=== PATIENT | male | born 1975 | race American Indian/Alaskan Native ===

== ENCOUNTER 2020-10-30 10:34 | Emergency (ER) | payer SELFPAY ==
[2020-10-30 10:44] VITALS: BP 126/86
--- NOTE | 2020-10-30 11:05 | Emergency Department Report ---
ED Lower Extremity HPI - General Chief Complaint: Extremity Injury, Lower Stated Complaint: RT LEG/KNEE PAIN Time Seen by Provider: 10/30/20 10:47 Source: patient Mode of arrival: Ambulatory Limitations: No Limitations - History of Present Illness Initial Comments: Patient is a 45-year-old male presents emergency room complaints of right knee pain that began yesterday morning. He states that 2 days ago he was at work picking up trash and slipped forward but did not fall to the ground. He states it felt like his knee locked up. He denies any popping sensation. He states the next morning when he woke up his knee began to feel sore and he had swelling in the knee. He states he has been using Epson salt but continues to have discomfort. He denies ever injuring in the past. He denies any numbness or weakness. He is ambulatory. No past medical history. No allergies to medications. - Related Data Previous Rx's Medication Instructions Recorded Last Taken Type Diclofenac Sodium [Voltaren 1 applicatio TP BID #20 gel..gram. 10/30/20 Unknown Rx Arthritis Pain] Naproxen [EC-Naproxen] 500 mg PO BID PRN #20 tablet. 10/30/20 Unknown Rx Allergies Allergy/AdvReac Type Severity Reaction Status Date / Time No Known Allergies Allergy Unverified 10/30/20 10:44 ED Review of Systems ROS: Stated complaint: RT LEG/KNEE PAIN Other details as noted in HPI Comment: All other systems reviewed and negative ED Past Medical Hx - Past Medical History Previous Medical History?: No - Surgical History Past Surgical History?: No - Medications Home Medications: Home Medications Medication Instructions Recorded Confirmed Last Taken Type Diclofenac Sodium [Voltaren 1 applicatio TP BID #20 gel..gram. 10/30/20 Unknown Rx Arthritis Pain] Naproxen [EC-Naproxen] 500 mg PO BID PRN #20 tablet. 10/30/20 Unknown Rx ED Physical Exam - General Limitations: No Limitations General appearance: alert, in no apparent distress - Head Head exam: Present: atraumatic, normocephalic - Eye Eye exam: Present: normal appearance - ENT ENT exam: Present: mucous membranes moist - Respiratory Respiratory exam: Absent: respiratory distress, accessory muscle use - Extremities Exam Extremities exam: Present: other (mild ttp to the right anterior and right medial knee, FROM of the RLE with discomfort upon flexion of the right knee, no obvious deformity, neurovascularly intact) - Neurological Exam Neurological exam: Present: alert, oriented X3 - Psychiatric Psychiatric exam: Present: normal affect, normal mood - Skin Skin exam: Present: warm, dry, intact ED Course Vital Signs 10/30/20 10:41 Temperature 97.7 F Pulse Rate 55 L Respiratory 18 Rate Blood Pressure 126/86 O2 Sat by Pulse 100 Oximetry ED Lower Extremity MDM - Radiology Data Radiology results: report reviewed, image reviewed Ordering Physician: TYRONE RUSSO Date of Service: 10/30/20 Procedure(s): XR knee 3V RT Accession Number(s): [id number] cc: TYRONE RUSSO Fluoro Time In Minutes: RIGHT KNEE 3 VIEW(S) INDICATION / CLINICAL INFORMATION: right knee pain after slip COMPARISON: None available. FINDINGS: BONES / JOINT(S): No acute fracture or malalignment. Moderate degenerative changes are present within the right knee, greatest at the patellofemoral compartment. No significant joint effusion. SOFT TISSUES: No significant abnormality. ADDITIONAL FINDINGS: None. IMPRESSION: Moderate knee osteoarthritis. No acute process. Signer Name: Antoinette Izaguirre MD Signed: 10/30/2020 11:46 AM Workstation Name: [id number] Transcribed By: JS Dictated By: ANTOINETTE IZAGUIRRE MD Electronically Authenticated By: ANTOINETTE IZAGUIRRE MD Signed Date/Time: 10/30/20 1146 DD/ 1145 TD/TT: Print Cancel - Medical Decision Making Patient is a 45-year-old male presents emergency room complaints of right knee pain that began yesterday morning. He states that 2 days ago he was at work picking up trash and slipped forward but did not fall to the ground. He states it felt like his knee locked up. He denies any popping sensation. He states the next morning when he woke up his knee began to feel sore and he had swelling in the knee. He states he has been using Epson salt but continues to have discomfort. He denies ever injuring in the past. He denies any numbness or weakness. He is ambulatory. No past medical history. No allergies to medications. VSS. on exam: mild ttp to the right anterior and right medial knee, FROM of the RLE with discomfort upon flexion of the right knee, no obvious deformity, neurovascularly intact. XR right knee: Moderate knee osteoarthritis. No acute process. Discussed all results with patient answered questions. Patient will be referred to orthopedic doctor. Patient placed in Tito wrap by nurse and remained neurovascularly intact. Patient given prescription for Voltaren gel and naproxen. Advised patient Please use medication as prescribed. Please do not wear Tito bandage too tightly and do not wear at night while sleeping. May use ice pack for 15 minutes at a time, elevation of the leg, rest. Follow-up with a orthopedic doctor. Return to emergency room for any worsening symptoms. Critical care attestation.: If time is entered above; I have spent that time in minutes in the direct care of this critically ill patient, excluding procedure time. ED Disposition Clinical Impression: Right knee pain Qualifiers: Chronicity: acute Qualified Code(s): M25.561 - Pain in right knee Osteoarthritis Qualifiers: Osteoarthritis location: knee Osteoarthritis type: unspecified Laterality: right Qualified Code(s): M17.11 - Unilateral primary osteoarthritis, right knee Disposition: - TO HOME OR SELFCARE Is pt being admited?: No Does the pt Need Aspirin: No Condition: Stable Instructions: Acute Knee Pain, Adult, Osteoarthritis Additional Instructions: Please use medication as prescribed. Please do not wear Tito bandage too tightly and do not wear at night while sleeping. May use ice pack for 15 minutes at a time, elevation of the leg, rest. Follow-up with a orthopedic doctor. Return to emergency room for any worsening symptoms. Prescriptions: Naproxen [EC-Naproxen] 500 mg PO BID PRN #20 tablet.dr HOFFMANN Reason: pain Diclofenac Sodium [Voltaren Arthritis Pain] 1 applicatio TP BID #20 gel..gram. Referrals: PRIMARY CAREMD [Primary Care Provider] - 2-3 Days SUSAN PALACIOS MD [Staff Physician] - 2-3 Days [facility] [Provider Group] - 2-3 Days Time of Disposition: 11:54 Print Language: SINHALA
--- NOTE | 2020-10-30 11:50 | XRay Report ---
RIGHT KNEE 3 VIEW(S) INDICATION / CLINICAL INFORMATION: right knee pain after slip COMPARISON: None available. FINDINGS: BONES / JOINT(S): No acute fracture or malalignment. Moderate degenerative changes are present within the right knee, greatest at the patellofemoral compartment. No significant joint effusion. SOFT TISSUES: No significant abnormality. ADDITIONAL FINDINGS: None. IMPRESSION: Moderate knee osteoarthritis. No acute process. Signer Name: Eliu Izaguirre MD Signed: 10/30/2020 11:46 AM Workstation Name: [id number]
== END 2020-10-30 12:16 | disposition home or self-care (01) ==
LOC: ED 10:34
DX: M17.11 Unilateral primary osteoarthritis, right knee (principal); Z79.899 Other long term (current) drug therapy
CPT/HCPCS: 99283